=== PATIENT | female | born 1960 | race Caucasian/White ===

== ENCOUNTER 2018-09-05 07:07 | Day surgery (SDC) | payer OTHER ==
[~2018-09-05] VITALS: Ht 160 cm; Wt 63.6 kg
[2018-09-05 08:34] VITALS: Ht 160 cm; Wt 63.6 kg
[2018-09-05] MEDS ORDERED: VALSARTAN (08:56)
[2018-09-05] MEDS ORDERED: ASPIRIN (08:56)
[2018-09-05] MEDS ORDERED: AMLODIPINE (08:56)
[2018-09-05 09:09] VITALS: BP 158/76; PULSE 63; RESP 12
[2018-09-05] MEDS ORDERED: MIDAZOLAM 1 MG/ML 2 ML INJ ONE ×3 (09:57)
[2018-09-05] MEDS ORDERED: FENTAnyl 50 MCG/ML VIAL ONE (09:57)
[2018-09-05 10:25] VITALS: BP 129/77; PULSE 62; RESP 12
== END 2018-09-05 16:44 | disposition home or self-care (01) ==
LOC: GIL 07:07
PROVIDERS: ATTEND Internal Medicine Gastroenterology
DX: Z12.11 Encounter for screening for malignant neoplasm of colon (principal); D12.5 Benign neoplasm of sigmoid colon; K64.8 Other hemorrhoids; I10 Essential (primary) hypertension
CPT/HCPCS: 45380; J2250; J3010; Z7610; 88305